=== PATIENT | male | born 1975 | race Caucasian/White ===

== ENCOUNTER 2019-06-10 09:03 | Emergency (ER) | payer OTHER ==
--- NOTE | 2019-06-10 09:45 | UC ---
Back Pain HPI - HPI Summary HPI Summary: 43-year-old male comes in with a chief complaint of back pain. Patient woke up this morning with severe pain in the lower thoracic back that radiates through anteriorly into his chest. He does have splinting pain. Movement makes the pain worse. When he first woke up he felt like he was unable to move. Since that time he has been able to move his arms and legs. Had been having some neck pain the last couple of weeks. Had some chills last evening. Patient reports he had a similar episode about 13 years ago and it was unsure whether or not he had had a stroke or not. - History of Current Complaint Chief Complaint: UCBackPain Stated Complaint: BACK PAIN Time Seen by Provider: 06/10/19 09:28 Pain Intensity: 9 - Allergies/Home Medications Allergies/Adverse Reactions: Allergies Allergy/AdvReac Type Severity Reaction Status Date / Time strawberry Allergy Itching Verified 06/10/19 09:27 Home Medications: Home Medications Ibuprofen 400 mg PO ONCE PRN 06/10/19 [History Confirmed 06/10/19] PMH/Surg Hx/FS Hx/Imm Hx Previously Healthy: Yes - Surgical History Surgical History: None - Family History Known Family History: Positive: Unknown - Social History Alcohol Use: Occasionally Substance Use Type: Marijuana Smoking Status (MU): Never Smoked Tobacco - Immunization History Most Recent Tetanus Shot: Unknown Review of Systems All Other Systems Reviewed And Are Negative: Yes Constitutional: Positive: Other - SEE HPI Skin: Positive: Negative Eyes: Positive: Negative ENT: Positive: Negative Respiratory: Positive: Other - SEE HPI Cardiovascular: Positive: Chest Pain Gastrointestinal: Positive: Negative Motor: Positive: Weakness Neurovascular: Positive: Other - SEE HPI Musculoskeletal: Positive: Other: - SEE HPI Neurological/Mental Status: Positive: Other - SEE HPI Psychological: Positive: Negative Is Patient Immunocompromised?: No Physical Exam Triage Information Reviewed: Yes Appearance: Well-Appearing, Well-Nourished, Pain Distress - MILD WITH MOVEMENT Vital Signs: Initial Vital Signs Temp 97.8 F 06/10/19 09:14 Pulse 62 06/10/19 09:14 Resp 15 06/10/19 09:14 BP 166/101 06/10/19 09:14 Pulse Ox 100 06/10/19 09:14 Vital Signs Reviewed: Yes Eye Exam: Normal Eyes: Positive: Conjunctiva Clear Neck: Positive: Supple Respiratory: Positive: Lungs clear, Normal breath sounds, No respiratory distress Cardiovascular: Positive: RRR Abdomen Description: Positive: Nontender, Soft Bowel Sounds: Positive: Present Musculoskeletal: Positive: Strength Intact, ROM Intact Neurological: Positive: Alert, Muscle Tone Normal Psychological: Positive: Age Appropriate Behavior Skin Exam: Normal Diagnostics - EKG Cardiac Rate: Bradycardia - AT 0919 Cardiac Rhythm: Sinus: Normal - 55BPM Ectopy: None ST Segment: Normal Back Pain Course/Dx - Course Course Of Treatment: EKG is sinus bradycardia I do not appreciate any ischemic changes. The pain originates in the lower thoracic back comes anterior through the chest the patient has splinting pain. Due to the severity of the pain and my inability to effectively rule out cardiac or pulmonary or vascular causes I recommended further evaluation emergency Department. Patient was brought to the emergency department by ambulance. - Differential Dx/Diagnosis Provider Diagnosis: Back pain, Chest pain Discharge ED - Sign-Out/Discharge Documenting (check all that apply): Patient Departure All imaging exams completed and their final reports reviewed: No Studies - Discharge Plan Condition: Stable Disposition: [facility]ANS [facility] Patient Education Materials: Chest Pain (ED), Back Pain (ED) Referrals: Mohini Ann MD [Primary Care Provider] - - Billing Disposition and Condition Condition: STABLE Disposition: Trans [facility] Care Fac
[2019-06-10 10:06] VITALS: BP 133/80
== END 2019-06-10 10:05 | disposition short-term general hospital (02) ==
LOC: UCEAST 09:03
DX: M54.6 Pain in thoracic spine (principal); R07.89 Other chest pain; Z91.018 Allergy to other foods
CPT/HCPCS: 99203; G0463

== ENCOUNTER 2019-06-10 10:25 | Emergency (ER) | payer OTHER ==
--- NOTE | 2019-06-10 11:11 | ED ---
HPI Chest Pain - HPI Summary HPI Summary: Patient is a 43-year-old male who presents emergency department for upper back times one day. Patient notes pain is worse with inspiration and feels pain in his chest. It is also worse with movement. Patient denies any injuries, heavy lifting or falls. Patient seen and continuing care prior to arrival referred to the ER for cardiac workup. Patient denies past medical history. Admits to marijuana use but denies other drug use. Denies significant family history of cardiac disease, aneurysms. Symptoms are moderate in severity. Patient otherwise denies recent fever, cough, abdominal pain, vomiting. - History of Current Complaint Chief Complaint: EDBackInjuryPain Time Seen by Provider: 06/10/19 10:44 Hx Obtained From: Patient Pain Intensity: 7 - Allergy/Home Medications Allergies/Adverse Reactions: Allergies Allergy/AdvReac Type Severity Reaction Status Date / Time strawberry Allergy Itching Verified 06/10/19 10:40 Home Medications: Home Medications Ibuprofen 400 mg PO ONCE PRN 06/10/19 [History Confirmed 06/10/19] PMH/Surg Hx/FS Hx/Imm Hx Previously Healthy: Yes Endocrine/Hematology History: Denies: Hx Diabetes, Hx Thyroid Disease Cardiovascular History: Denies: Hx Hypertension Respiratory History: Denies: Hx Asthma, Hx Chronic Obstructive Pulmonary Disease (COPD) GI History: Denies: Hx Ulcer Infectious Disease History: No Infectious Disease History: Denies: Hx Hepatitis, Hx Human Immunodeficiency Virus (HIV), Traveled Outside the [place] in Last 30 Days - Family History Known Family History: Positive: Unknown, Non-Contributory - Social History Occupation: Employed Full-time Lives: With Family Alcohol Use: Occasionally Substance Use Type: Reports: Marijuana Smoking Status (MU): Never Smoked Tobacco Review of Systems Constitutional: Negative Negative: Fever Positive: Chest Pain Respiratory: Negative Negative: Shortness Of Breath, Cough Gastrointestinal: Negative Positive: Other - Upper back pain Skin: Negative Neurological/Mental Status: Negative All Other Systems Reviewed And Are Negative: Yes Physical Exam Triage Information Reviewed: Yes Vital Signs On Initial Exam: Initial Vitals Temp Pulse Resp BP Pulse Ox 98.2 F 64 16 147/72 99 06/10/19 10:35 06/10/19 10:35 06/10/19 10:35 06/10/19 10:35 06/10/19 10:35 Vital Signs Reviewed: Yes Appearance: Positive: Well-Appearing - Pt. lying in bed in NAD. family present. Skin: Positive: Warm, Dry Head/Face: Positive: Normal Head/Face Inspection Eyes: Positive: Normal, EOMI Neck: Positive: Supple Respiratory/Lung Sounds: Positive: Clear to Auscultation, Breath Sounds Present. Negative: Rales, Rhonchi, Wheezes Cardiovascular: Positive: Normal, RRR Abdomen Description: Positive: Nontender, Soft Musculoskeletal: Positive: Normal, Strength/ROM Intact, Other - Pain with movement to upper back. No midline tenderness or reproducible pain on palpation. Neurological: Positive: Normal, CN Intact II-III Psychiatric: Positive: Affect/Mood Appropriate Procedures - Sedation Patient Received Moderate/Deep Sedation with Procedure: No Diagnostics - Vital Signs Vital Signs Temp Pulse Resp BP Pulse Ox 06/10/19 10:35 98.2 F 64 16 147/72 99 - Laboratory Result Diagrams: 06/10/19 11:36 06/10/19 11:36 Lab Statement: Any lab studies that have been ordered have been reviewed, and results considered in the medical decision making process. Chest Pain Course/Dx - Course Course Of Treatment: Patient with upper back pain/chest pain increased with inspiration. No recent surgeries. Afebrile with stable vital signs. We'll obtain cardiac workup. At rest patient's pain is minimal. ECG done at 1123 shows a sinus bradycardia of 54bpm, normal axis, appropriate intervals, no STEMI. Chest x-ray negative for acute findings per radiology. Blood work is unremarkable including negative d-dimer. Results discussed with patient. Is resting comfortably. Suspect muscular in nature. Recommend anti- inflammatories warm compresses. Close follow-up with PCP and return to the ER symptoms change or worsen. Patient understands and agrees with plan. - Chest Pain Differential Diagnosis/HQI/PQRI: Acute ND, Aortic Aneurysm, Chest Wall, GI Disease, Pulmonary Embolism - Diagnoses Provider Diagnoses: Thoracic back pain, Atypical chest pain Discharge ED - Sign-Out/Discharge Documenting (check all that apply): Patient Departure - Discharge Plan Condition: Good Disposition: HOME Patient Education Materials: Chest Wall Pain (ED), Thoracic Back Strain (ED) Referrals: Mohini Ann MD [Primary Care Provider] - Additional Instructions: Follow up with your PCP as scheduled Take ibuprofen 400mg-600mg every 6 hours for pain as directed Apply warm compresses to back Return to ER if symptoms change or worsen - Billing Disposition and Condition Condition: GOOD Disposition: Home
[2019-06-10 11:53] LABS: ABS Basophils 0.1 10^3/ul (0-0.2); ABS Eosinophils 0.1 10^3/ul (0-0.6); ABS Lymphocytes 2.2 10^3/ul (1.0-4.8); ABS Monocytes 0.5 10^3/ul (0-0.8); Eosinophil % 1.8 %; Hematocrit 42 % (42-52); Hemoglobin 14.9 g/dL (14.0-18.0); Lymphocyte % 37.5 %; Mean Corpuscular HGB Conc 35 g/dL (31-36); Mean Corpuscular Hemoglobin 31 pg (27-31); Mean Corpuscular Volume 88 fL (80-94); Mean Platelet Volume 8.2 fL (7.4-10.4); Nucleated Red Blood Cells % 0.3; Platelet Count 179 10^3/uL (150-450); Red Blood Count 4.82 10^6 /uL (4.18-5.48); Red Cell Distribution Width 13 % (10-15); White Blood Count 5.8 10^3/uL (3.5-10.8)
[2019-06-10 12:09] LABS: Albumin 4.1 g/dL (3.2-5.2); Albumin/Globulin Ratio 1.7 (1-3); BUN/Creatinine Ratio 18.4 (8-20); Calcium 8.6 mg/dL (8.6-10.3); EGFR African American 115.3 (>60); EGFR Non-African American 95.3 (>60); Globulin 2.4 g/dL (2-4); Total Bilirubin 0.6 mg/dL (0.2-1.0); Total Protein 6.5 g/dL (6.4-8.9)
[2019-06-10 12:46] LABS: Potassium 3.6 mmol/L (3.5-5.0)
[2019-06-10 13:22] VITALS: BP 136/69
== END 2019-06-10 13:21 | disposition home or self-care (01) ==
LOC: ED 10:25
DX: R07.89 Other chest pain (principal); M54.9 Dorsalgia, unspecified
CPT/HCPCS: 36415; 71045; 80053; 83690; 84484; 85025; 85379; 93005; 99282